=== PATIENT | female | born 1985 ===

== ENCOUNTER 2019-12-25 19:28 | Emergency (ER) | payer BC, SELFPAY ==
[2019-12-25 19:37] VITALS: BP 159/90; PULSE 92; RESP 16; TEMP 36.7; O2SAT 95; BMI 36.2
--- NOTE | 2019-12-25 20:13 | W.ED.SKABFB ---
HPI - Skin/Abscess/Foreign Bdy General: Chief complaint: Skin/Abscess/Foreign Body Stated complaint: abcess on stomach Time Seen by Provider: 12/25/19 20:01 History of Present Illness: HPI narrative: Patient is a 34-year-old female comes to the ED with possible abscess. Patient says she noticed red bump on her abdomen just below her umbilicus about a week ago. She says it has continued to progressively get bigger and more painful. She says the last 24 hours it opened and started draining some yellow fluid. Patient says she is not . Associated symptoms: Deny chills, fever(s), nausea or vomiting Review of Systems Const: Denies: fever(s), chills or fatigue Eyes: Denies: change in vision or eye discomfort ENMT: Denies: throat pain, odynophagia, nasal discharge or nasal congestion Card: Denies: chest pain, palpitations, edema, swelling of feet/ankles, dyspnea on exertion or orthopnea Resp: Denies: dyspnea, productive cough or non-productive cough GI: Denies: abdominal pain, nausea, vomiting, diarrhea, constipation or hematochezia : Denies: flank pain, dysuria or hematuria Musc: Denies: neck pain, back pain or extremity swelling Skin/Breast: Reports: new lesions (Possible abscess on abdomen.); Denies: rash Neuro: Denies: headache(s), numbness in extremities or weakness in extremities [facility] ED Female Reproductive History: Date of last menstrual period: 12/09/19 Physical Exam Const: COMMON NORMALS: no acute distress, patient oriented x3, healthy appearing and alert GENERAL APPEARANCE: cooperative and comfortable HENMT: COMMON NORMALS: normocephalic HEAD & SCALP: normocephalic MOUTH: Normal oral and palatal mucosa present THROAT: posterior oropharynx normal and uvula midline Neck/C-Spine: COMMON NORMALS: supple GENERAL: Yes normal visual inspection Resp: COMMON NORMALS: normal respiratory effort, No retractions, No use of accessory muscles and clear to auscultation bilaterally AUSCULTATION: clear to auscultation bilaterally Cardio: COMMON NORMALS: regular rate, regular rhythm, S1 normal heart sound present, S2 normal heart sound present, No gallops present (Cardio), No clicks present (Cardio), No murmurs present (Cardio) and Peripheral pulses 2+ throughout RATE: regular rate RHYTHM: regular rhythm HEART SOUNDS: S1 normal heart sound present and S2 normal heart sound present PERIPHERAL PULSES: Peripheral pulses 2+ throughout GI: COMMON NORMALS: Normal to inspection, nondistended, normoactive bowel sounds present, Soft to palpation, non-tender and no masses PALPATION: Yes Soft to palpation : COMMON NORMALS: Yes no CVA tenderness BLADDER/KIDNEY EXAM: Yes no CVA tenderness Back/Pelvis: COMMON NORMALS: no CVA tenderness Extremity: COMMON NORMALS: normal to inspection and no pedal edema Neuro: COMMON NORMALS: patient oriented x3 and moves all extremities SENSORIUM/ORIENTATION: Yes alert Skin: LESIONS: lesion noted abdomen Lesion type: Yes maculopapular Lesion size (cm): 1 Lesion location: abdomen just below umbilicus. Lesion color: Yes erythematous, Yes red and Yes surrounding erythema Lesion surface: Yes dry, Yes raised, No pointed, No draining, Yes shiny and Yes warm Lesion border: Yes irregular Lesion tenderness: Yes mild Lesion finding consistent with: Yes cellulitis Course Vital Signs: Vital signs: Vital Signs Temperature 98.0 F 12/25/19 19:37 Pulse Rate 92 12/25/19 19:37 Respiratory Rate 16 12/25/19 19:37 Blood Pressure 159/90 12/25/19 19:37 Pulse Oximetry 95 12/25/19 19:37 MDM - Skin/Abscess/Foreign Bdy MDM Narrative: Medical decision making narrative: Patient is a 34-year-old female comes to the ED with possible skin infection/abscess on abdomen. Physical exam showed erythema and warmth. No nodule palpated and skin nonfluctuant and indurated. Patient diagnosed with cellulitis. Patient was put on a prescription for Bactrim and told to follow-up with PCP in 7 to 10 days. She can return to ED if symptoms worsen. Patient understood and agreed with plan. Discharge Plan Discharge Patient Disposition: Home, Self-Care Clinical Impression: Cellulitis Qualifiers: Site of cellulitis: trunk Site of cellulitis of trunk: abdominal wall Qualified Code(s): L03.311 - Cellulitis of abdominal wall Condition: Stable Prescriptions: New Bactrim DS 800-160 mg tablet 1 tab PO BID 7 Days Qty: 14 RF: 0 Discharge Orders: Discharge Order (Routine); Ordered 12/25/19 Ordered By: Jaycob Vizcarra Discharge Diet: Regular Discharge Activity: Resume usual activity Patient Instructions: Cellulitis (ED) Activity Restrictions/Additional Instructions: Follow-up with medical provider as directed in7-10 days. Take medications as prescribed. Return to the ER or your medical provider if condition worsens. Please read and understand discharge instructions. If any questions, please ask. Discharge Date/Time: 12/25/19 20:50 Coding Level of Care Code ED Rfid Strategist for Keyla Fwd Exam Comprehensive
[2019-12-25] MEDS: sulfamethoxazole-trimeth DS 160-800 mg Tablet 1 TAB PO (20:47)
== END 2019-12-25 20:50 | disposition home or self-care (01) ==
PROVIDERS: Emergency Provider Physician Assistant
DX: L03.311 Cellulitis of abdominal wall (principal)
CPT/HCPCS: 12345; 99281; 99283